=== PATIENT | female | born 1960 | race Two or more races ===

== ENCOUNTER 2022-02-13 13:30 | Outpatient (CLI) | payer SELFPAY | END 2022-02-13 23:59 | disposition home health service (06) | LOC: WOU 13:30 | PROVIDERS: ATTEND Specialist | DX: T81.89XD Other complications of procedures, not elsewhere classified, subsequent encounter (principal); J70.0 Acute pulmonary manifestations due to radiation; C71.9 Malignant neoplasm of brain, unspecified | CPT/HCPCS: 99205; 87070; A6197; G0463 ==